=== PATIENT | female | born 1990 | race Caucasian/White ===

== ENCOUNTER 2017-03-26 14:35 | Emergency (ER) | payer OTHER ==
[~2017-03-26] VITALS: Ht 157.5 cm; Wt 54.7 kg
[~2017-03-26 14:35] MED LIST: PRENTAB26 PO
[2017-03-26 14:41] VITALS: TEMP 36.9; Ht 157.5 cm; Wt 54.7 kg
--- NOTE | 2017-03-26 15:28 | EMERGENCY ROOM VISIT NOTE ---
History Report prepared by Amber: Destiny Mcintosh Under the Supervision of: Dr. Arnol Sellers M.D. First contact with patient: 15:15 Chief Complaint: OTHER COMPLAINT Stated Complaint: BLURRED VISION History of Present Illness The patient is a 27 year old female who presents to the Emergency Room with complaints of intermittent dizziness that began prior to arrival. The patient reports that she was downtown at the [employer] social today and then went to [facility] and developed blurry vision. She additionally notes the dizziness and lightheadedness which is worsened with change of position. The patient reports normal bowel movements and urination. She states that she did not eat lunch today and states that she drank fluids. The patient states that this has happened in the past, but states that it was never this bad. The patient states that she has been increasingly stressed recently and reports abnormal menstrual periods. She states that she takes control daily, but often forgets to take her medication. The patient notes a family history of diabetes. Source of History: patient Onset: prior to arrival Position: other (global) Quality: other (dizziness) Timing: intermittent Note: Associated Symptoms: lightheadedness, blurred vision, abnormal menstrual periods , increased stress Review of Systems All systems have been listed, reviewed, and are negative other than those previously mentioned. Please see Additional Medical History Sheet. Past Medical & Surgical Surgical Problems: (1) Previous section (2) [place] teeth removed Family History Cancer Diabetes mellitus Heart disease Hypertension Social History Smoking Status: Former Smoker Smokeless Tobacco Use: No Alcohol Use: none Marital Status: Housing Status: lives with family Occupation Status: unemployed Current/Historical Medications Scheduled Control Pills ( Control Pills), 1 TAB PO DAILY Allergies Coded Allergies: Sulfa Drugs (Unverified Allergy, Mild, 2/5/10) Sulfamethoxazole (Unverified Allergy, Mild, 2/5/10) Trimethoprim (Unverified Allergy, Mild, 2/5/10) Physical Exam Vital Signs Date Time Temp Pulse Resp B/P (MAP) Pulse Ox O2 Delivery O2 Flow Rate FiO2 03/26/17 16:45 97 20 107/69 100 Room Air 03/26/17 14:41 36.9 111 18 139/66 100 Room Air Physical Exam GENERAL: Patient appears anxious. Patient awake, alert, oriented x 3. Patient follows commands. Patient does not appear toxic. Patient is adequately hydrated and well-nourished. SKIN: No erythema, pallor, cyanosis or rash HEENT: Normal head, pupils equal, reactive to light and accommodation. Ears normal. Oral cavity and posterior pharynx appear normal. Neck: Without adenopathy, no neck vein distention. LUNGS: Clear to auscultation. No wheezes, no rales, no rhonchi. HEART: No murmurs. No gallops. No rubs ABDOMEN: No masses, no rebound, no hepatomegaly or splenomegaly. EXTREMITIES: No signs of trauma. No pedal or pretibial edema. No calf or thigh tenderness. NEUROLOGIC: Cranial nerves II-XII within normal limits. No gross motor sensory function deficits. Medical Decision & Procedures Laboratory Results 03/26/17 15:50 Red Blood Count 5.29, Mean Corpuscular Volume 81.9, Mean Corpuscular Hemoglobin 28.4, Mean Corpuscular Hemoglobin Concent 34.6, Mean Platelet Volume 9.0, Neutrophils (%) (Auto) 63.2, Lymphocytes (%) (Auto) 31.1, Monocytes (%) (Auto) 4.6, Eosinophils (%) (Auto) 0.6, Basophils (%) (Auto) 0.2, Neutrophils # (Auto) 5.96, Lymphocytes # (Auto) 2.93, Monocytes # (Auto) 0.43, Eosinophils # (Auto) 0.06, Basophils # (Auto) 0.02 03/26/17 15:50 Test 03/26/17 14:44 03/26/17 14:48 03/26/17 15:50 Urine Color YELLOW Urine Appearance CLEAR (CLEAR) Urine pH 6.5 (4.5-7.5) Urine Specific Parker 1.006 (1.000-1.030) Urine Protein NEG (NEG) Urine Glucose (UA) NEG (NEG) Urine Ketones NEG (NEG) Urine Occult Blood NEG (NEG) Urine Nitrite NEG (NEG) Urine Bilirubin NEG (NEG) Urine Urobilinogen NEG (NEG) Urine Leukocyte Esterase NEG (NEG) Urine Test NEG (NEG) Bedside Glucose 83 mg/dl (70-90) White Blood Count 9.43 K/uL (4.8-10.8) Red Blood Count 5.29 M/uL (4.2-5.4) Hemoglobin 15.0 g/dL (12.0-16.0) Hematocrit 43.3 % (37-47) Mean Corpuscular Volume 81.9 fL (80-100) Mean Corpuscular Hemoglobin 28.4 pg (25-34) Mean Corpuscular Hemoglobin Concent 34.6 g/dl (32-36) Platelet Count 255 K/uL (130-400) Mean Platelet Volume 9.0 fL (7.4-10.4) Neutrophils (%) (Auto) 63.2 % Lymphocytes (%) (Auto) 31.1 % Monocytes (%) (Auto) 4.6 % Eosinophils (%) (Auto) 0.6 % Basophils (%) (Auto) 0.2 % Neutrophils # (Auto) 5.96 K/uL (1.4-6.5) Lymphocytes # (Auto) 2.93 K/uL (1.2-3.4) Monocytes # (Auto) 0.43 K/uL (0.11-0.59) Eosinophils # (Auto) 0.06 K/uL (0-0.5) Basophils # (Auto) 0.02 K/uL (0-0.2) RDW Standard Deviation 38.5 fL (36.4-46.3) RDW Coefficient of Variation 12.8 % (11.5-14.5) Immature Granulocyte % (Auto) 0.3 % Immature Granulocyte # (Auto) 0.03 K/uL (0.00-0.02) Anion Gap 8.0 mmol/L (3-11) Est Creatinine Clear Calc Drug Dose 94.5 ml/min Estimated GFR () 134.9 Estimated GFR (Non- 116.4 BUN/Creatinine Ratio 10.6 (10-20) Calcium Level 9.6 mg/dl (8.5-10.1) Laboratory results as stated above per my review. ED Course 1516: Past medical records reviewed. The patient was evaluated in room B2. A complete history and physical examination was performed. 1630: I reevaluated the patient and she is doing well. I discussed the exam findings with her and I discussed the treatment plan. She verbalized complete understanding and agreement. She is ready to go home shortly Medical Decision Nurses notes reviewed. Medical history sheet reviewed. Differential diagnosis includes but is not limited to: hyperventilation, anxiety, anemia, metabolic disorder, dehydration. Medication Reconciliation: I attest that I have personally reviewed the patient' s current medication list. Blood pressure Screening: Patient was found to have normal blood pressure on screening and does not require follow up. Patient had a near-syncopal episode of vomiting. The patient has been under increased stress recently. She is rather anxious. The patient had a workup including multiple labs, urinalysis. Please see above. The patient was observed . Prior to discharge the patient returned to her normal state. Impression Primary Impression: Near syncope Additional Impression: Anxiety Scribe Attestation The scribe's documentation has been prepared under my direction and personally reviewed by me in its entirety. I confirm that the note above accurately reflects all work, treatment, procedures, and medical decision making performed by me. Departure Information Dispostion Home / Self-Care Referrals Flkao Foote M.D. (PCP) Forms HOME CARE DOCUMENTATION FORM, IMPORTANT VISIT INFORMATION Patient Instructions My [facility] [place] Third Age Additional Instructions Drink at least 3-4 quarts of liquid over the next 24 hours. REST Problem Qualifiers
[2017-03-26] MEDS ORDERED: BCPILLS PO (15:30)
[2017-03-26 15:48] LABS: URINE APPEARANCE CLEAR (CLEAR); URINE BILIRUBIN NEG (NEG); URINE COLOR YELLOW; URINE NITRITE NEG (NEG); URINE PH 6.5 (4.5-7.5); URINE SPECIFIC GRAVITY 1.006 (1.000-1.030); UROBILINOGEN NEG (NEG); ZZUR CULT IF INDIC CLEAN CATCH NO
[2017-03-26 15:57] LABS: PREG INTERNAL NEGATIVE QC NEG CLEAR BACKGROUND; PREG INTERNAL POSITIVE QC POS CONTROL LINE
[2017-03-26 15:58] LABS: MANUAL MICROSCOPIC REQUIRED? NO; REVIEW REQ? NO
[2017-03-26 16:06] LABS: BASO % 0.2 %; BASO ABS # 0.02 K/uL (0-0.2); COMPLETE YES; EOS % 0.6 %; HEMATOCRIT 43.3 % (37-47); IG% 0.3 %; LYMPH % 31.1 %; LYMPH ABS # 2.93 K/uL (1.2-3.4); MEAN CELL VOLUME 81.9 fL (80-100); MEAN CORPUSCULAR HEMOGLOBIN 28.4 pg (25-34); MEAN CORPUSCULAR HGB CONC 34.6 g/dl (32-36); MONO % 4.6 %; NEUT % 63.2 %; PLATELET COUNT 255 K/uL (130-400); RED BLOOD COUNT 5.29 M/uL (4.2-5.4); WHITE BLOOD COUNT 9.43 K/uL (4.8-10.8)
[2017-03-26 16:24] LABS: BUN/CREATININE RATIO 10.6 (10-20); CALCIUM 9.6 mg/dl (8.5-10.1); CREATININE 0.72 mg/dl (0.60-1.20); POTASSIUM 3.6 mmol/L (3.5-5.1)
[2017-03-26 16:45] VITALS: BP 107/69; PULSE 97; O2SAT 100
== END 2017-03-26 17:10 | disposition home or self-care (01) ==
LOC: EDBD 14:35 → C.EDB 14:36
DX: R55 Syncope and collapse (principal); F41.9 Anxiety disorder, unspecified; Z87.891 Personal history of nicotine dependence; Z88.2 Allergy status to sulfonamides; Z88.8 Allergy status to other drugs, medicaments and biological substances; Z80.9 Family history of malignant neoplasm, unspecified; Z83.3 Family history of diabetes mellitus; Z82.49 Family history of ischemic heart disease and other diseases of the circulatory system